=== PATIENT | male | born 1960 | race Hispanic/Latino ===

== ENCOUNTER 2022-03-14 14:24 | Inpatient (IN) | payer BC, OTHER ==
[~2022-03-14] VITALS: Ht 175.3 cm; Wt 79.4 kg
[2022-03-14 15:08] LABS: BASOPHILS % 0.1 % (0.0-1.0); EOSINOPHILS % 0.2 % (0.0-6.0); LYMPHOCYTES # (AUTO) 1.7 (1.0-3.2); LYMPHOCYTES % 14.6 % (18.0-39.1); MEAN CORPUSCULAR HEMOGLOBIN 24.4 pg (28-32); MEAN CORPUSCULAR HGB CONC 31.5 g/dL (31-35); MEAN CORPUSCULAR VOLUME 77.3 fL (81-99); MONOCYTES # (AUTO) 1.2 (0.2-0.8); NEUTROPHILS # (AUTO) 8.3 (2.1-6.9); NEUTROPHILS % 73.4 % (38.7-80.0); PLATELET COUNT 335 x10e3/uL (140-360); RED BLOOD COUNT 2.38 x10e6/uL (4.3-5.7); RED CELL DISTRIBUTION WIDTH 18.8 % (11.7-14.4)
[2022-03-14 15:14] LABS: HEMOGLOBIN 5.8 g/dL (14.0-18.0)
[2022-03-14 15:15] LABS: HEMATOCRIT 18.4 % (38.2-49.6)
[2022-03-14 15:26] LABS: ALBUMIN 1.9 g/dL (3.5-5.0); ALBUMIN/GLOBULIN RATIO 0.5 (0.8-2.0); ANION GAP 12.8 mmol/L (8-16); CALCIUM 8.5 mg/dL (8.4-10.2); CREATININE, SERUM 1.15 mg/dL (0.72-1.25)
[2022-03-14] MEDS ORDERED: SODIUM CHLORIDE 0.9% 250ML 250 ML IV ONE (15:30)
[2022-03-14 15:32] LABS: POTASSIUM 2.8 mmol/L (3.5-5.1)
[2022-03-14] MEDS ORDERED: POTASSIUM CHLORIDE 20 MEQ TAB CR PO ONE ×2 (15:32→20:20)
[2022-03-14] MEDS: POTASSIUM CHLORIDE 20MEQ/100ML 100 ML IV SCH ×2 (16:00→17:30)
[2022-03-14] MEDS ORDERED: OCTREOTIDE ACETATE 500 MCG in SODIUM CHLORIDE 0.9% 250ML 250 ML IV SCH (16:15)
[2022-03-14] MEDS ORDERED: ONDANSETRON HCL INJ 2MG/ML 2ML 2 MG/ML VIAL IV PRN (16:15)
[2022-03-14] MEDS ORDERED: SODIUM CHLORIDE 0.9% 1000ML 1,000 ML ONE (16:17)
[2022-03-14] MEDS: SODIUM CHLORIDE 0.9% 1000ML 1,000 ML IV SCH (16:38)
[2022-03-14] MEDS ORDERED: FUROSEMIDE40 MG PO (18:14)
[2022-03-14] MEDS ORDERED: AMLODIPINE BESYL5 MG PO (18:14)
[2022-03-14] MEDS ORDERED: ASPIRIN325 MG PO (18:14)
[2022-03-14] MEDS ORDERED: CLOPIDOGREL75 MG PO (18:14)
[2022-03-14] MEDS ORDERED: PREDNISONE20 MG PO (18:14)
[2022-03-14] MEDS ORDERED: ATORVASTATIN CA40 MG PO (18:14)
[2022-03-14 20:00] VITALS: BP 131/72
[2022-03-14] MEDS ORDERED: POTASSIUM CHLORIDE 20MEQ/100ML 100 ML IV ONE (20:25)
[2022-03-14 20:54] LABS: % IRON SATURATION 4 % (15-50); IRON 15 ug/dL (65-175); TOTAL IRON BINDING CAPACITY 420 ug/dL (261-478); TRANSFERRIN 300 mg/dL (174-364)
[2022-03-14 21:00] VITALS: BP 131/72
[2022-03-14] MEDS ORDERED: FUROSEMIDE INJ 10 MG/ML 4 ML VIAL IV ONE (22:45)
[2022-03-14] MEDS: OCTREOTIDE ACETATE 500 MCG in SODIUM CHLORIDE 0.9% 250ML 250 ML IV SCH (23:59)
[2022-03-15] VITALS (8 sets, daily range): BP systolic 106–146; BP diastolic 69–76
[2022-03-15] MEDS: SODIUM CHLORIDE 0.9% 1000ML 1,000 ML IV SCH ×2 (00:09→05:35)
[2022-03-15 04:59] LABS: BASOPHILS % 0.1 % (0.0-1.0); EOSINOPHILS % 0.4 % (0.0-6.0); HEMATOCRIT 23.8 % (38.2-49.6); HEMOGLOBIN 7.4 g/dL (14.0-18.0); LYMPHOCYTES % 13.3 % (18.0-39.1); MEAN CORPUSCULAR HEMOGLOBIN 24.3 pg (28-32); MEAN CORPUSCULAR HGB CONC 31.1 g/dL (31-35); MONOCYTES # (AUTO) 0.7 (0.2-0.8); MONOCYTES % 9.6 % (4.4-11.3); NEUTROPHILS # (AUTO) 5.9 (2.1-6.9); NEUTROPHILS % 76.1 % (38.7-80.0); PLATELET COUNT 224 x10e3/uL (140-360); RED BLOOD COUNT 3.05 x10e6/uL (4.3-5.7); RED CELL DISTRIBUTION WIDTH 19.5 % (11.7-14.4)
[2022-03-15 05:07] LABS: INR 1.22; PROTHROMBIN TIME 15.6 seconds (11.9-14.5)
[2022-03-15 05:08] LABS: PARTIAL THROMBOPLASTIN TIME 35.6 seconds (23.8-35.5)
[2022-03-15 05:14] LABS: ALBUMIN 1.8 g/dL (3.5-5.0); ALBUMIN/GLOBULIN RATIO 0.5 (0.8-2.0); ANION GAP 12.4 mmol/L (8-16); CALCIUM 8.1 mg/dL (8.4-10.2); CREATININE, SERUM 1.12 mg/dL (0.72-1.25); POTASSIUM 3.4 mmol/L (3.5-5.1)
[2022-03-15] MEDS: IRON SUCROSE 100 MG in SODIUM CHLORIDE 0.9% 100 ML IV SCH (09:20)
[2022-03-15] MEDS: OCTREOTIDE ACETATE 500 MCG in SODIUM CHLORIDE 0.9% 250ML 250 ML IV SCH ×2 (09:20→16:49)
[2022-03-15] MEDS: FUROSEMIDE INJ 10 MG/ML 4 ML VIAL IV SCH ×2 (09:23→16:49)
[2022-03-15] MEDS ORDERED: IOPAMIDOL 370 MG/ML 100 ML INFUS..BTL INJ ONE (12:02)
[2022-03-15] MEDS ORDERED: POVIDONE IODINE 0.05% 0.05 % ML PO ONE (12:12)
[2022-03-15] MEDS ORDERED: PROPOFOL IV EMULSION 10 MG/ML 20 ML VIAL ONE (12:12)
[2022-03-15] MEDS ORDERED: LIDOCAINE HCL 2% LOCAL INJ 5 ML SDV VIAL INJ ONE (12:12)
[2022-03-15] MEDS: TRAMADOL HCL 50 MG TAB PO PRN ×2 (18:17→18:48)
[2022-03-16] VITALS (9 sets, daily range): BP systolic 105–138; BP diastolic 70–81
[2022-03-16] MEDS: TRAMADOL HCL 50 MG TAB PO PRN (01:23)
[2022-03-16 04:59] LABS: BASOPHILS % 0.4 % (0.0-1.0); EOSINOPHILS # (AUTO) 0.1 (0.0-0.4); EOSINOPHILS % 1.6 % (0.0-6.0); HEMATOCRIT 22.9 % (38.2-49.6); HEMOGLOBIN 7.2 g/dL (14.0-18.0); LYMPHOCYTES # (AUTO) 1.1 (1.0-3.2); LYMPHOCYTES % 12.3 % (18.0-39.1); MEAN CORPUSCULAR HEMOGLOBIN 24.5 pg (28-32); MEAN CORPUSCULAR HGB CONC 31.4 g/dL (31-35); MEAN CORPUSCULAR VOLUME 77.9 fL (81-99); MONOCYTES # (AUTO) 0.9 (0.2-0.8); MONOCYTES % 10.1 % (4.4-11.3); NEUTROPHILS # (AUTO) 6.8 (2.1-6.9); NEUTROPHILS % 74.9 % (38.7-80.0); PLATELET COUNT 271 x10e3/uL (140-360); RED BLOOD COUNT 2.94 x10e6/uL (4.3-5.7); RED CELL DISTRIBUTION WIDTH 19.3 % (11.7-14.4)
[2022-03-16] MEDS: OCTREOTIDE ACETATE 500 MCG in SODIUM CHLORIDE 0.9% 250ML 250 ML IV SCH ×4 (05:15→23:09)
[2022-03-16 05:19] LABS: ALBUMIN 1.8 g/dL (3.5-5.0); ALBUMIN/GLOBULIN RATIO 0.5 (0.8-2.0); ANION GAP 12.4 mmol/L (8-16); CALCIUM 8.3 mg/dL (8.4-10.2); CREATININE, SERUM 1.39 mg/dL (0.72-1.25); MAGNESIUM 1.8 MG/DL (1.3-2.1); PHOSPHORUS 3.3 MG/DL (2.3-4.7); POTASSIUM 3.4 mmol/L (3.5-5.1)
[2022-03-16 05:46] LABS: THYROID STIMULATING HORMONE 1.039 uIU/mL (0.350-4.940)
[2022-03-16] MEDS: FUROSEMIDE INJ 10 MG/ML 4 ML VIAL IV SCH (09:14)
[2022-03-16] MEDS ORDERED: POTASSIUM CHLORIDE 10MEQ EA PO ONE (09:30)
[2022-03-16] MEDS: IRON SUCROSE 100 MG in SODIUM CHLORIDE 0.9% 100 ML IV SCH (10:00)
[2022-03-17 05:24] LABS: BASOPHILS % 0.2 % (0.0-1.0); EOSINOPHILS # (AUTO) 0.2 (0.0-0.4); EOSINOPHILS % 1.8 % (0.0-6.0); HEMATOCRIT 23.2 % (38.2-49.6); HEMOGLOBIN 7.2 g/dL (14.0-18.0); LYMPHOCYTES # (AUTO) 1.3 (1.0-3.2); LYMPHOCYTES % 15.4 % (18.0-39.1); MEAN CORPUSCULAR HEMOGLOBIN 24.2 pg (28-32); MEAN CORPUSCULAR VOLUME 78.1 fL (81-99); MONOCYTES # (AUTO) 0.8 (0.2-0.8); MONOCYTES % 9.5 % (4.4-11.3); NEUTROPHILS % 72.1 % (38.7-80.0); RED BLOOD COUNT 2.97 x10e6/uL (4.3-5.7); RED CELL DISTRIBUTION WIDTH 19.9 % (11.7-14.4)
[2022-03-17 05:36] VITALS: BP 148/82
[2022-03-17 05:37] LABS: PLATELET COUNT 226 x10e3/uL (140-360)
[2022-03-17 05:45] LABS: ALBUMIN 1.7 g/dL (3.5-5.0); ALBUMIN/GLOBULIN RATIO 0.5 (0.8-2.0); ANION GAP 12.5 mmol/L (8-16); CALCIUM 7.8 mg/dL (8.4-10.2); CREATININE, SERUM 1.76 mg/dL (0.72-1.25); POTASSIUM 3.5 mmol/L (3.5-5.1)
[2022-03-17] MEDS: OCTREOTIDE ACETATE 500 MCG in SODIUM CHLORIDE 0.9% 250ML 250 ML IV SCH (08:00)
[2022-03-17 08:07] VITALS: BP 129/76
[2022-03-17] MEDS: FUROSEMIDE INJ 10 MG/ML 4 ML VIAL IV SCH (08:36)
[2022-03-17] MEDS: IRON SUCROSE 100 MG in SODIUM CHLORIDE 0.9% 100 ML IV SCH (08:37)
[2022-03-17] MEDS ORDERED: FUROSEMIDE INJ 10 MG/ML 2 ML VIAL IV PRN (09:45)
[2022-03-17] MEDS ORDERED: SODIUM CHLORIDE 0.9% 250ML 250 ML IV ONE (10:30)
[2022-03-17 10:32] VITALS: BP 129/76
[2022-03-17] MEDS: SUCRALFATE 1 GM/10 ML SUSP NG SCH ×3 (11:56→20:37)
[2022-03-17 12:00] VITALS: BP 132/86
[2022-03-17] MEDS ORDERED: SODIUM CHLORIDE 0.9% 250ML 250 ML ONE (16:13)
[2022-03-17 16:30] VITALS: BP 128/75
[2022-03-17 20:00] VITALS: BP 145/79
[2022-03-17] MEDS ORDERED: FUROSEMIDE INJ 10 MG/ML 4 ML VIAL IV ONE (23:45)
[2022-03-18] VITALS: BP 143/78
[2022-03-18 04:00] VITALS: BP 129/75
[2022-03-18 05:08] LABS: BASOPHILS % 0.5 % (0.0-1.0); EOSINOPHILS # (AUTO) 0.1 (0.0-0.4); EOSINOPHILS % 1.7 % (0.0-6.0); HEMATOCRIT 30.3 % (38.2-49.6); HEMOGLOBIN 9.5 g/dL (14.0-18.0); LYMPHOCYTES # (AUTO) 0.9 (1.0-3.2); LYMPHOCYTES % 13.3 % (18.0-39.1); MEAN CORPUSCULAR HEMOGLOBIN 25.3 pg (28-32); MEAN CORPUSCULAR HGB CONC 31.4 g/dL (31-35); MEAN CORPUSCULAR VOLUME 80.6 fL (81-99); MONOCYTES # (AUTO) 0.6 (0.2-0.8); MONOCYTES % 9.1 % (4.4-11.3); NEUTROPHILS # (AUTO) 4.8 (2.1-6.9); NEUTROPHILS % 74.5 % (38.7-80.0); PLATELET COUNT 184 x10e3/uL (140-360); RED BLOOD COUNT 3.76 x10e6/uL (4.3-5.7); RED CELL DISTRIBUTION WIDTH 19.9 % (11.7-14.4)
[2022-03-18 05:25] LABS: ALBUMIN 1.7 g/dL (3.5-5.0); ALBUMIN/GLOBULIN RATIO 0.5 (0.8-2.0); ANION GAP 10.2 mmol/L (8-16); CALCIUM 7.9 mg/dL (8.4-10.2); CREATININE, SERUM 1.47 mg/dL (0.72-1.25); POTASSIUM 3.2 mmol/L (3.5-5.1)
[2022-03-18] MEDS ORDERED: FUROSEMIDE INJ 10 MG/ML 4 ML VIAL IV SCH (06:00)
[2022-03-18 08:00] VITALS: BP 129/75
[2022-03-18] MEDS ORDERED: IRON-VITAMIN-MINERAL CAPSULE PO SCH (09:00)
[2022-03-18] MEDS ORDERED: SPIRONOLACTONE 25 MG TAB PO SCH (09:00)
[2022-03-18] MEDS ORDERED: FUROSEMIDE 40 MG TAB PO SCH (09:00)
[2022-03-18] MEDS: SUCRALFATE 1 GM/10 ML SUSP NG SCH ×2 (09:33→12:00)
[2022-03-18] MEDS ORDERED: POTASSIUM CHLORIDE 10MEQ EA PO ONE (10:30)
[2022-03-18 10:57] VITALS: BP 129/75
[2022-03-18] MEDS ORDERED: FUROSEMIDE40 MG PO (11:34)
[2022-03-18] MEDS ORDERED: ALDACTONE25 MG PO (11:34)
[2022-03-18] MEDS ORDERED: PANTOPRAZOLE SO40 MG PO (11:34)
[2022-03-18] MEDS ORDERED: CARAFATE1 GM PO (11:35)
[2022-03-18] MEDS ORDERED: ONDANSETRON ODT4 MG PO (11:35)
[2022-03-18] MEDS ORDERED: PROPRANOLOL HCL10 MG PO (11:36)
== END 2022-03-18 13:16 | disposition home or self-care (01) | DRG 432 ==
LOC: ER 14:29 → ERHOLD 16:19 → MED/SURG2 18:02
PROVIDERS: ADMIT Internal Medicine; ATTEND Internal Medicine
PROC: 0DB78ZX Excision of Stomach, Pylorus, Via Natural or Artificial Opening Endoscopic, Diagnostic (ICD-10-PCS; 2022-03-15)
PROC: 0DB68ZX Excision of Stomach, Via Natural or Artificial Opening Endoscopic, Diagnostic (ICD-10-PCS; 2022-03-15)
PROC: 30233N1 Transfusion of Nonautologous Red Blood Cells into Peripheral Vein, Percutaneous Approach (ICD-10-PCS; 2022-03-15)
PROC: 0DB98ZX Excision of Duodenum, Via Natural or Artificial Opening Endoscopic, Diagnostic (ICD-10-PCS; principal; 2022-03-15 14:54)
DX: K70.31 Alcoholic cirrhosis of liver with ascites (principal); K22.11 Ulcer of esophagus with bleeding; K25.4 Chronic or unspecified gastric ulcer with hemorrhage; K76.6 Portal hypertension; D68.4 Acquired coagulation factor deficiency; F10.20 Alcohol dependence, uncomplicated; K31.89 Other diseases of stomach and duodenum; I10 Essential (primary) hypertension; B18.2 Chronic viral hepatitis C; R63.4 Abnormal weight loss; Z68.25 Body mass index [BMI] 25.0-25.9, adult; E87.8 Other disorders of electrolyte and fluid balance, not elsewhere classified; Z20.822 Contact with and (suspected) exposure to COVID-19
CPT/HCPCS: 0223U; 36415; 43239; 71045; 74178; 76700; 80053; 82270; 82607; 82746; 83540; 83735; 83880; 84100; 84443; 84466; 84484; 85025; 85045; 85610; 85730; 86850; 86900; 86920; 88304; 88305; 88312; 88342; 93005; 99284; J0694; J1756; J1940; J2001; J2353; J3480; J7030; J7050; P9016; Q9967

== ENCOUNTER → 2022-04-04 | Day surgery (SDC) | payer OTHER ==
[~2022-04-04] MED LIST: ALDACTONE25 MG PO; AMLODIPINE BESYL5 MG PO; ASPIRIN325 MG PO; ATORVASTATIN CA40 MG PO; CARAFATE1 GM PO; CLOPIDOGREL75 MG PO; FENTANYL CITRATE/PF 100MCG/2 ML INJ ONE; FUROSEMIDE INJ 10 MG/ML 4 ML VIAL ONE; FUROSEMIDE40 MG PO; HYOSCYAMINE SULFATE 0.5 MG/ML INJ ONE; MIDAZOLAM HCL 2 MG/2 ML VIAL ONE; ONDANSETRON ODT4 MG PO; PANTOPRAZOLE SO40 MG PO; POVIDONE IODINE 0.05% 0.05 % ML PO ONE; PREDNISONE20 MG PO; PROPOFOL IV EMULSION 10 MG/ML 20 ML VIAL ONE; PROPRANOLOL HCL10 MG PO
[2022-04-04 15:40] VITALS: BP 138/89
[2022-04-04 15:56] LABS: ANION GAP 15.9 mmol/L (8-16); CALCIUM 8.8 mg/dL (8.4-10.2); CREATININE, SERUM 1.61 mg/dL (0.72-1.25); POTASSIUM 3.9 mmol/L (3.5-5.1)
== END | disposition home or self-care (01) ==
LOC: OR 08:41
PROVIDERS: ATTEND Internal Medicine Gastroenterology
DX: D64.9 Anemia, unspecified (principal); D12.5 Benign neoplasm of sigmoid colon; K57.30 Diverticulosis of large intestine without perforation or abscess without bleeding; K64.8 Other hemorrhoids; K70.31 Alcoholic cirrhosis of liver with ascites; K22.10 Ulcer of esophagus without bleeding; B96.81 Helicobacter pylori [H. pylori] as the cause of diseases classified elsewhere; Z71.3 Dietary counseling and surveillance; I10 Essential (primary) hypertension; Z79.899 Other long term (current) drug therapy; Z68.26 Body mass index [BMI] 26.0-26.9, adult; Z86.19 Personal history of other infectious and parasitic diseases; Z86.73 Personal history of transient ischemic attack (TIA), and cerebral infarction without residual deficits
CPT/HCPCS: 36415; 45385; 80048; J1940; J1980; J2250; J2704; J3010

== ENCOUNTER → 2022-04-06 | Outpatient (CLI) | payer OTHER ==
[~2022-04-06] MED LIST changes: +ALBUMIN 25% 12.5GM 50ML 150 ML IV ONE; -FENTANYL CITRATE/PF 100MCG/2 ML INJ ONE; -FUROSEMIDE INJ 10 MG/ML 4 ML VIAL ONE; -HYOSCYAMINE SULFATE 0.5 MG/ML INJ ONE; -MIDAZOLAM HCL 2 MG/2 ML VIAL ONE; -POVIDONE IODINE 0.05% 0.05 % ML PO ONE; -PROPOFOL IV EMULSION 10 MG/ML 20 ML VIAL ONE
[2022-04-06 14:52] LABS: BODY FLUID APPEARANCE SL.CLOUDY; BODY FLUID COLOR YELLOW; BODY FLUID TYPE PERITONEAL
[2022-04-06 15:21] LABS: RBC,BODY FLUID < 2000 cells/uL; WBC,BODY FLUID 92 cells/uL
[2022-04-06 17:32] LABS: LYMPHOCYTES,BODY FLUID 7 %; MONO/MACROPHG,BODY FLUID 47 %; NEUTROPHILS,BODY FLUID 5 %; OTHER CELLS,BODY FLUID 41 %
== END ==
LOC: US 10:05
PROVIDERS: ATTEND Nurse Practitioner
DX: Z12.11 Encounter for screening for malignant neoplasm of colon (principal); K70.31 Alcoholic cirrhosis of liver with ascites; D64.9 Anemia, unspecified; K22.10 Ulcer of esophagus without bleeding
CPT/HCPCS: 36415; 49083; 82040; 84157; 87070; 87205; 88300; 89051; C1729; 88112; 88305; 88342

== ENCOUNTER 2022-04-22 10:39 | Inpatient (IN) | payer OTHER ==
[~2022-04-22] VITALS: Ht 177.8 cm; Wt 77.1 kg
[~2022-04-22 10:39] MED LIST changes: -ALBUMIN 25% 12.5GM 50ML 150 ML IV ONE
[2022-04-22 11:07] LABS: BASOPHILS % 0.3 % (0.0-1.0); EOSINOPHILS # (AUTO) 0.2 (0.0-0.4); EOSINOPHILS % 1.8 % (0.0-6.0); HEMATOCRIT 24.9 % (38.2-49.6); HEMOGLOBIN 8.4 g/dL (14.0-18.0); LYMPHOCYTES # (AUTO) 1.6 (1.0-3.2); LYMPHOCYTES % 18.2 % (18.0-39.1); MEAN CORPUSCULAR HEMOGLOBIN 26.5 pg (28-32); MEAN CORPUSCULAR HGB CONC 33.7 g/dL (31-35); MEAN CORPUSCULAR VOLUME 78.5 fL (81-99); MONOCYTES % 11.7 % (4.4-11.3); NEUTROPHILS # (AUTO) 5.9 (2.1-6.9); NEUTROPHILS % 66.3 % (38.7-80.0); PLATELET COUNT 372 x10e3/uL (140-360); RED BLOOD COUNT 3.17 x10e6/uL (4.3-5.7)
[2022-04-22 11:18] LABS: INR 1.12; PROTHROMBIN TIME 14.6 seconds (11.9-14.5)
[2022-04-22 11:19] LABS: PARTIAL THROMBOPLASTIN TIME 44.8 seconds (23.8-35.5)
[2022-04-22 11:26] LABS: ALBUMIN 1.8 g/dL (3.5-5.0); ALBUMIN/GLOBULIN RATIO 0.5 (0.8-2.0); ANION GAP 12.8 mmol/L (8-16); CALCIUM 8.5 mg/dL (8.4-10.2); CREATININE, SERUM 1.78 mg/dL (0.72-1.25); POTASSIUM 4.8 mmol/L (3.5-5.1)
[2022-04-22] MEDS ORDERED: OCTREOTIDE ACETATE 0.05 MG/ML AMP IV STA (11:40)
[2022-04-22 11:46] LABS: CREATINE KINASE MB 2.8 ng/mL (0-5.0)
[2022-04-22] MEDS: OCTREOTIDE ACETATE 500 MCG in SODIUM CHLORIDE 0.9% 250ML 249 ML IV SCH ×2 (12:18→21:30)
[2022-04-22] MEDS ORDERED: HEPARIN SOD (PORCINE) 5,000 UNIT/ML VIAL IV ONE (12:45)
[2022-04-22] MEDS ORDERED: HEPARIN 25,000 UNIT/D5W 250ML 900 UNIT in DEXTROSE 5% 250ML 250 ML IV SCH (12:45)
[2022-04-22] MEDS: ONDANSETRON HCL INJ 2MG/ML 2ML 2 MG/ML VIAL IV PRN (13:52)
[2022-04-22] MEDS ORDERED: ALBUMIN 25% 25GM 100ML 0.25 GM/ML BTL IV SCH (14:00)
[2022-04-22 14:08] VITALS: BP 108/67
[2022-04-22 14:09] VITALS: BP 108/67
[2022-04-22] MEDS ORDERED: MULTIVITAMIN PO (14:36)
[2022-04-22 14:37] VITALS: BP 108/67
[2022-04-22] MEDS: ALBUMIN 25% 25GM 100ML 0.25 GM/ML BTL IV SCH ×2 (16:12→21:19)
[2022-04-22 16:38] VITALS: BP 108/67
[2022-04-22 17:07] LABS: BASOPHILS % 0.5 % (0.0-1.0); EOSINOPHILS # (AUTO) 0.1 (0.0-0.4); EOSINOPHILS % 0.7 % (0.0-6.0); HEMATOCRIT 24.7 % (38.2-49.6); HEMOGLOBIN 8.1 g/dL (14.0-18.0); LYMPHOCYTES # (AUTO) 1.4 (1.0-3.2); LYMPHOCYTES % 16.9 % (18.0-39.1); MEAN CORPUSCULAR HEMOGLOBIN 26.9 pg (28-32); MEAN CORPUSCULAR HGB CONC 32.8 g/dL (31-35); MEAN CORPUSCULAR VOLUME 82.1 fL (81-99); MONOCYTES # (AUTO) 0.9 (0.2-0.8); MONOCYTES % 10.6 % (4.4-11.3); NEUTROPHILS # (AUTO) 5.7 (2.1-6.9); NEUTROPHILS % 69.6 % (38.7-80.0); PLATELET COUNT 271 x10e3/uL (140-360); RED BLOOD COUNT 3.01 x10e6/uL (4.3-5.7); RED CELL DISTRIBUTION WIDTH 28.3 % (11.7-14.4)
[2022-04-22 17:30] LABS: CREATINE KINASE MB 2.5 ng/mL (0-5.0)
[2022-04-22 20:00] VITALS: BP 103/50
[2022-04-22 21:00] VITALS: BP 103/50
[2022-04-22] MEDS ORDERED: ZOLPIDEM TARTRATE 5 MG TAB PO PRN (21:00)
[2022-04-22] MEDS ORDERED: MULTIVITAMINS- 12 INJECTION 10 ML, FOLIC ACID MDV 1 MG, THIAMINE HCL INJ 100 MG in SODI... IV SCH (21:45)
[2022-04-22] MEDS ORDERED: DESMOPRESSIN ACETATE 4 MCG/ML VIAL IV ONE (21:45)
[2022-04-22] MEDS ORDERED: CYANOCOBALAMIN 1,000 MCG TAB PO ONE (22:45)
[2022-04-22 23:39] LABS: % IRON SATURATION 15 % (15-50); IRON 52 ug/dL (65-175); TOTAL IRON BINDING CAPACITY 337 ug/dL (261-478); TRANSFERRIN 241 mg/dL (174-364)
[2022-04-23] VITALS (9 sets, daily range): BP systolic 94–118; BP diastolic 55–68
[2022-04-23] MEDS ORDERED: FUROSEMIDE INJ 10 MG/ML 4 ML VIAL IV STA (00:32)
[2022-04-23 02:59] LABS: BASOPHILS % 0.4 % (0.0-1.0); EOSINOPHILS # (AUTO) 0.1 (0.0-0.4); EOSINOPHILS % 1.8 % (0.0-6.0); LYMPHOCYTES # (AUTO) 1.3 (1.0-3.2); LYMPHOCYTES % 19.2 % (18.0-39.1); MEAN CORPUSCULAR HEMOGLOBIN 26.1 pg (28-32); MEAN CORPUSCULAR HGB CONC 33.5 g/dL (31-35); MONOCYTES # (AUTO) 0.7 (0.2-0.8); MONOCYTES % 9.6 % (4.4-11.3); NEUTROPHILS # (AUTO) 4.6 (2.1-6.9); NEUTROPHILS % 67.8 % (38.7-80.0); PLATELET COUNT 291 x10e3/uL (140-360); RED BLOOD COUNT 2.68 x10e6/uL (4.3-5.7); RED CELL DISTRIBUTION WIDTH 27.6 % (11.7-14.4)
[2022-04-23 03:02] LABS: HEMATOCRIT 20.9 % (38.2-49.6)
[2022-04-23 03:23] LABS: CREATINE KINASE MB 2.2 ng/mL (0-5.0)
[2022-04-23] MEDS: PROPRANOLOL HCL 10 MG TAB PO SCH ×4 (05:25→22:00)
[2022-04-23 06:34] LABS: CLARITY,URINE CLEAR (CLEAR); COLOR,URINE YELLOW (YELLOW); KETONES,URINE NEGATIVE (NEGATIVE); LEUKOCYTE ESTERASE ,URINE NEGATIVE (NEGATIVE); NITRITE,URINE NEGATIVE (NEGATIVE); PROTEIN,URINE DIPSTICK NEGATIVE (NEGATIVE); URINE UROBILINOGEN 0.2 mg/dL (0.2 - 1)
[2022-04-23 06:54] LABS: BACTERIA,URINE RARE /HPF; EPITHELIAL CELLS,URINE RARE /LPF; WBC,URINE (MAN) 0-5 /HPF (0-5)
[2022-04-23 07:11] LABS: ALBUMIN 2.5 g/dL (3.5-5.0); ALBUMIN/GLOBULIN RATIO 0.8 (0.8-2.0); ANION GAP 14.8 mmol/L (8-16); CALCIUM 8.7 mg/dL (8.4-10.2); CREATININE, SERUM 1.84 mg/dL (0.72-1.25); POTASSIUM 4.8 mmol/L (3.5-5.1)
[2022-04-23 08:00] LABS: BILIRUBIN,DIRECT 9.2 mg/dL (0.0-0.5)
[2022-04-23] MEDS ORDERED: FUROSEMIDE INJ 10 MG/ML 4 ML VIAL IV SCH (09:00)
[2022-04-23] MEDS: MULTIVITAMINS/MINERALS TAB PO SCH (09:22)
[2022-04-23] MEDS: IRON SUCROSE 100 MG in SODIUM CHLORIDE 0.9% 100 ML IV SCH (09:22)
[2022-04-23] MEDS: SODIUM CHLORIDE 1 GM TAB PO SCH ×3 (10:48→21:15)
[2022-04-23] MEDS: OCTREOTIDE ACETATE 500 MCG in SODIUM CHLORIDE 0.9% 250ML 249 ML IV SCH (10:49)
[2022-04-23] MEDS ORDERED: SODIUM CHLORIDE 0.9% 250ML 250 ML IV ONE ×2 (11:00→16:00)
[2022-04-23] MEDS ORDERED: ALBUMIN 25% 12.5GM 50ML 0 ML IV ONE (12:05)
[2022-04-23 12:10] LABS: CREATININE,URINE RANDOM 18.07 mg/dL (63-166)
[2022-04-23] MEDS: SODIUM BICARBONATE 8.4% 150 ML in STERILE WATER IV SOLN 1,000 ML IV SCH (13:43)
[2022-04-23 14:35] LABS: BASOPHILS % 0.5 % (0.0-1.0); EOSINOPHILS # (AUTO) 0.1 (0.0-0.4); EOSINOPHILS % 1.4 % (0.0-6.0); LYMPHOCYTES # (AUTO) 0.9 (1.0-3.2); LYMPHOCYTES % 15.7 % (18.0-39.1); MEAN CORPUSCULAR HEMOGLOBIN 26.5 pg (28-32); MEAN CORPUSCULAR VOLUME 80.2 fL (81-99); MONOCYTES # (AUTO) 0.8 (0.2-0.8); MONOCYTES % 13.1 % (4.4-11.3); NEUTROPHILS # (AUTO) 3.9 (2.1-6.9); NEUTROPHILS % 68.1 % (38.7-80.0); RED BLOOD COUNT 2.57 x10e6/uL (4.3-5.7); RED CELL DISTRIBUTION WIDTH 27.9 % (11.7-14.4)
[2022-04-23 14:58] LABS: HEMATOCRIT 20.6 % (38.2-49.6); HEMOGLOBIN 6.8 g/dL (14.0-18.0)
[2022-04-23 14:59] LABS: PLATELET COUNT 249 x10e3/uL (140-360)
[2022-04-23 15:15] LABS: BODY FLUID APPEARANCE CLOUDY; BODY FLUID COLOR YELLOW; BODY FLUID TYPE PERITONEAL; RBC,BODY FLUID 0 cells/uL; WBC,BODY FLUID 53 cells/uL
[2022-04-23 15:37] LABS: LYMPHOCYTES,BODY FLUID 36 %; MONO/MACROPHG,BODY FLUID 41 %; NEUTROPHILS,BODY FLUID 8 %; OTHER CELLS,BODY FLUID 15 %
[2022-04-23] MEDS ORDERED: SODIUM CHLORIDE 0.9% 500ML 500 ML ONE (15:55)
[2022-04-23 19:07] LABS: CLARITY,URINE CLEAR (CLEAR); COLOR,URINE YELLOW (YELLOW); LEUKOCYTE ESTERASE ,URINE NEGATIVE (NEGATIVE); NITRITE,URINE NEGATIVE (NEGATIVE)
[2022-04-23 19:08] LABS: KETONES,URINE NEGATIVE (NEGATIVE); PROTEIN,URINE DIPSTICK NEGATIVE (NEGATIVE); URINE UROBILINOGEN 1 mg/dL (0.2 - 1)
[2022-04-23 19:20] LABS: RBC,URINE 0-5 /HPF (0-5)
[2022-04-23 19:21] LABS: EPITHELIAL CELLS,URINE FEW /LPF; HYALINE CASTS >15 (0-1)
[2022-04-23 19:22] LABS: BACTERIA,URINE MANY /HPF; MUCUS,URINE FEW (RARE)
[2022-04-24] VITALS (9 sets, daily range): BP systolic 102–130; BP diastolic 58–76
[2022-04-24] MEDS: SODIUM BICARBONATE 8.4% 150 ML in STERILE WATER IV SOLN 1,000 ML IV SCH (05:39)
[2022-04-24] MEDS: PROPRANOLOL HCL 10 MG TAB PO SCH ×3 (06:00→22:00)
[2022-04-24] MEDS: OCTREOTIDE ACETATE 500 MCG in SODIUM CHLORIDE 0.9% 250ML 249 ML IV SCH ×3 (06:08→13:19)
[2022-04-24] MEDS: SODIUM CHLORIDE 1 GM TAB PO SCH ×3 (08:34→20:50)
[2022-04-24] MEDS: MULTIVITAMINS/MINERALS TAB PO SCH (08:34)
[2022-04-24 09:43] LABS: BASOPHILS % 0.5 % (0.0-1.0); EOSINOPHILS # (AUTO) 0.1 (0.0-0.4); EOSINOPHILS % 1.8 % (0.0-6.0); HEMATOCRIT 28.7 % (38.2-49.6); HEMOGLOBIN 9.9 g/dL (14.0-18.0); LYMPHOCYTES # (AUTO) 0.7 (1.0-3.2); LYMPHOCYTES % 11.4 % (18.0-39.1); MEAN CORPUSCULAR HEMOGLOBIN 27.7 pg (28-32); MEAN CORPUSCULAR HGB CONC 34.5 g/dL (31-35); MEAN CORPUSCULAR VOLUME 80.2 fL (81-99); MONOCYTES # (AUTO) 0.6 (0.2-0.8); MONOCYTES % 9.5 % (4.4-11.3); NEUTROPHILS # (AUTO) 4.7 (2.1-6.9); NEUTROPHILS % 75.8 % (38.7-80.0); PLATELET COUNT 233 x10e3/uL (140-360); RED BLOOD COUNT 3.58 x10e6/uL (4.3-5.7); RED CELL DISTRIBUTION WIDTH 24.2 % (11.7-14.4)
[2022-04-24 10:02] LABS: ALBUMIN 2.3 g/dL (3.5-5.0); ALBUMIN/GLOBULIN RATIO 0.8 (0.8-2.0); ANION GAP 15.5 mmol/L (8-16); CALCIUM 8.4 mg/dL (8.4-10.2); CREATININE, SERUM 1.69 mg/dL (0.72-1.25); POTASSIUM 4.5 mmol/L (3.5-5.1)
[2022-04-24] MEDS: IRON SUCROSE 100 MG in SODIUM CHLORIDE 0.9% 100 ML IV SCH (10:07)
[2022-04-24] MEDS ORDERED: SODIUM CHLORIDE 0.9% 1000ML 1,000 ML ONE (13:12)
[2022-04-24 15:14] LABS: BASOPHILS % 0.3 % (0.0-1.0); EOSINOPHILS # (AUTO) 0.1 (0.0-0.4); HEMATOCRIT 27.4 % (38.2-49.6); HEMOGLOBIN 9.6 g/dL (14.0-18.0); LYMPHOCYTES # (AUTO) 0.9 (1.0-3.2); LYMPHOCYTES % 15.3 % (18.0-39.1); MEAN CORPUSCULAR HEMOGLOBIN 27.4 pg (28-32); MEAN CORPUSCULAR VOLUME 78.1 fL (81-99); MONOCYTES # (AUTO) 0.6 (0.2-0.8); MONOCYTES % 9.6 % (4.4-11.3); NEUTROPHILS # (AUTO) 4.3 (2.1-6.9); PLATELET COUNT 234 x10e3/uL (140-360); RED BLOOD COUNT 3.51 x10e6/uL (4.3-5.7); RED CELL DISTRIBUTION WIDTH 23.7 % (11.7-14.4)
[2022-04-24] MEDS: TRAMADOL HCL 50 MG TAB PO PRN (21:42)
[2022-04-25] VITALS (7 sets, daily range): BP systolic 96–124; BP diastolic 60–75
[2022-04-25] MEDS: SODIUM BICARBONATE 8.4% 150 ML in STERILE WATER IV SOLN 1,000 ML IV SCH (01:37)
[2022-04-25] MEDS: OCTREOTIDE ACETATE 500 MCG in SODIUM CHLORIDE 0.9% 250ML 249 ML IV SCH ×3 (01:37→21:09)
[2022-04-25 05:42] LABS: BASOPHILS % 0.5 % (0.0-1.0); EOSINOPHILS # (AUTO) 0.1 (0.0-0.4); EOSINOPHILS % 1.7 % (0.0-6.0); HEMATOCRIT 28.3 % (38.2-49.6); HEMOGLOBIN 9.6 g/dL (14.0-18.0); LYMPHOCYTES # (AUTO) 1.4 (1.0-3.2); LYMPHOCYTES % 17.5 % (18.0-39.1); MEAN CORPUSCULAR HEMOGLOBIN 27.4 pg (28-32); MEAN CORPUSCULAR HGB CONC 33.9 g/dL (31-35); MEAN CORPUSCULAR VOLUME 80.6 fL (81-99); MONOCYTES % 13.1 % (4.4-11.3); NEUTROPHILS # (AUTO) 5.1 (2.1-6.9); NEUTROPHILS % 65.8 % (38.7-80.0); PLATELET COUNT 231 x10e3/uL (140-360); RED BLOOD COUNT 3.51 x10e6/uL (4.3-5.7); RED CELL DISTRIBUTION WIDTH 24.6 % (11.7-14.4)
[2022-04-25] MEDS: PROPRANOLOL HCL 10 MG TAB PO SCH ×2 (06:00→14:00)
[2022-04-25 07:03] LABS: ALBUMIN 2.1 g/dL (3.5-5.0); ALBUMIN/GLOBULIN RATIO 0.8 (0.8-2.0); ANION GAP 14.7 mmol/L (8-16); CREATININE, SERUM 1.35 mg/dL (0.72-1.25); POTASSIUM 4.7 mmol/L (3.5-5.1)
[2022-04-25] MEDS: MULTIVITAMINS/MINERALS TAB PO SCH (08:46)
[2022-04-25] MEDS: IRON SUCROSE 100 MG in SODIUM CHLORIDE 0.9% 100 ML IV SCH (08:47)
[2022-04-25] MEDS: SODIUM CHLORIDE 1 GM TAB PO SCH ×2 (08:49→15:56)
[2022-04-25 12:23] LABS: BASOPHILS % 0.6 % (0.0-1.0); EOSINOPHILS # (AUTO) 0.1 (0.0-0.4); EOSINOPHILS % 2.2 % (0.0-6.0); HEMATOCRIT 27.6 % (38.2-49.6); HEMOGLOBIN 9.4 g/dL (14.0-18.0); LYMPHOCYTES # (AUTO) 1.1 (1.0-3.2); LYMPHOCYTES % 22.2 % (18.0-39.1); MEAN CORPUSCULAR HEMOGLOBIN 27.3 pg (28-32); MEAN CORPUSCULAR HGB CONC 34.1 g/dL (31-35); MEAN CORPUSCULAR VOLUME 80.2 fL (81-99); MONOCYTES # (AUTO) 0.5 (0.2-0.8); MONOCYTES % 10.7 % (4.4-11.3); NEUTROPHILS # (AUTO) 3.1 (2.1-6.9); NEUTROPHILS % 62.7 % (38.7-80.0); PLATELET COUNT 239 x10e3/uL (140-360); RED BLOOD COUNT 3.44 x10e6/uL (4.3-5.7); RED CELL DISTRIBUTION WIDTH 24.8 % (11.7-14.4)
[2022-04-25 19:41] LABS: BASOPHILS % 0.7 % (0.0-1.0); EOSINOPHILS # (AUTO) 0.1 (0.0-0.4); EOSINOPHILS % 2.3 % (0.0-6.0); HEMATOCRIT 28.8 % (38.2-49.6); LYMPHOCYTES # (AUTO) 1.2 (1.0-3.2); LYMPHOCYTES % 22.1 % (18.0-39.1); MEAN CORPUSCULAR HEMOGLOBIN 27.5 pg (28-32); MEAN CORPUSCULAR HGB CONC 34.7 g/dL (31-35); MEAN CORPUSCULAR VOLUME 79.3 fL (81-99); MONOCYTES # (AUTO) 0.8 (0.2-0.8); MONOCYTES % 13.3 % (4.4-11.3); NEUTROPHILS # (AUTO) 3.3 (2.1-6.9); NEUTROPHILS % 58.6 % (38.7-80.0); PLATELET COUNT 255 x10e3/uL (140-360); RED BLOOD COUNT 3.63 x10e6/uL (4.3-5.7); RED CELL DISTRIBUTION WIDTH 24.9 % (11.7-14.4)
[2022-04-25] MEDS ORDERED: SODIUM CHLORIDE 0.9% 250ML 250 ML ONE (20:38)
[2022-04-25] MEDS: ONDANSETRON HCL INJ 2MG/ML 2ML 2 MG/ML VIAL IV PRN (21:11)
[2022-04-26] VITALS: BP 134/52
[2022-04-26] MEDS: PROPRANOLOL HCL 10 MG TAB PO SCH ×4 (02:43→21:42)
[2022-04-26] MEDS: SODIUM CHLORIDE 1 GM TAB PO SCH ×4 (02:43→21:42)
[2022-04-26] MEDS: SODIUM BICARBONATE 8.4% 150 ML in STERILE WATER IV SOLN 1,000 ML IV SCH ×3 (02:54→22:03)
[2022-04-26 04:00] VITALS: BP 109/68
[2022-04-26] MEDS: OCTREOTIDE ACETATE 500 MCG in SODIUM CHLORIDE 0.9% 250ML 249 ML IV SCH ×3 (06:00→22:03)
[2022-04-26 07:40] LABS: BASOPHILS % 0.5 % (0.0-1.0); EOSINOPHILS # (AUTO) 0.1 (0.0-0.4); EOSINOPHILS % 1.7 % (0.0-6.0); HEMATOCRIT 26.6 % (38.2-49.6); HEMOGLOBIN 9.2 g/dL (14.0-18.0); LYMPHOCYTES # (AUTO) 1.2 (1.0-3.2); LYMPHOCYTES % 20.8 % (18.0-39.1); MEAN CORPUSCULAR HEMOGLOBIN 27.4 pg (28-32); MEAN CORPUSCULAR HGB CONC 34.6 g/dL (31-35); MEAN CORPUSCULAR VOLUME 79.2 fL (81-99); MONOCYTES # (AUTO) 0.7 (0.2-0.8); MONOCYTES % 11.1 % (4.4-11.3); NEUTROPHILS # (AUTO) 3.8 (2.1-6.9); NEUTROPHILS % 64.2 % (38.7-80.0); PLATELET COUNT 274 x10e3/uL (140-360); RED BLOOD COUNT 3.36 x10e6/uL (4.3-5.7); RED CELL DISTRIBUTION WIDTH 24.8 % (11.7-14.4)
[2022-04-26 08:02] LABS: ALBUMIN 1.8 g/dL (3.5-5.0); ALBUMIN/GLOBULIN RATIO 0.7 (0.8-2.0); ANION GAP 13.1 mmol/L (8-16); CALCIUM 8.2 mg/dL (8.4-10.2); CREATININE, SERUM 1.23 mg/dL (0.72-1.25); POTASSIUM 4.1 mmol/L (3.5-5.1)
[2022-04-26 08:13] VITALS: BP 111/79
[2022-04-26 08:35] VITALS: BP 111/79
[2022-04-26 09:12] LABS: PLATELET ESTIMATE ADEQUATE; PLATELET MORPHOLOGY COMMENT NORMAL
[2022-04-26 09:13] LABS: ANISOCYTOSIS SLIGHT; POIKILOCYTOSIS SLIGHT; RBC MORPHOLOGY COMMENT NORMAL; TARGET CELLS FEW
[2022-04-26] MEDS: MULTIVITAMINS/MINERALS TAB PO SCH (09:25)
[2022-04-26] MEDS: IRON SUCROSE 100 MG in SODIUM CHLORIDE 0.9% 100 ML IV SCH (09:31)
[2022-04-26 11:30] VITALS: BP 100/71
[2022-04-26] MEDS: CIPROFLOXACIN 400 MG/D5W 200ML 200 ML IV SCH (11:51)
[2022-04-26 17:05] VITALS: BP 121/75
[2022-04-27] VITALS (7 sets, daily range): BP systolic 107–129; BP diastolic 53–84
[2022-04-27] MEDS: CIPROFLOXACIN 400 MG/D5W 200ML 200 ML IV SCH ×3 (02:58→21:30)
[2022-04-27] MEDS: PROPRANOLOL HCL 10 MG TAB PO SCH ×3 (05:42→21:33)
[2022-04-27] MEDS: MULTIVITAMINS/MINERALS TAB PO SCH (07:58)
[2022-04-27] MEDS: SODIUM CHLORIDE 1 GM TAB PO SCH ×3 (07:58→21:30)
[2022-04-27] MEDS: IRON SUCROSE 100 MG in SODIUM CHLORIDE 0.9% 100 ML IV SCH (07:58)
[2022-04-27] MEDS: OCTREOTIDE ACETATE 500 MCG in SODIUM CHLORIDE 0.9% 250ML 249 ML IV SCH (11:40)
[2022-04-27] MEDS: SODIUM BICARBONATE 8.4% 150 ML in STERILE WATER IV SOLN 1,000 ML IV SCH ×2 (13:06→15:50)
[2022-04-27] MEDS ORDERED: SODIUM CHLORIDE 0.9% 250ML 250 ML ONE (21:39)
[2022-04-27] MEDS: TRAMADOL HCL 50 MG TAB PO PRN (22:41)
[2022-04-28] VITALS (8 sets, daily range): BP systolic 101–124; BP diastolic 67–82
[2022-04-28] MEDS: PROPRANOLOL HCL 10 MG TAB PO SCH ×3 (06:00→21:12)
[2022-04-28] MEDS: SODIUM BICARBONATE 8.4% 150 ML in STERILE WATER IV SOLN 1,000 ML IV SCH (06:37)
[2022-04-28 07:01] LABS: BASOPHILS % 0.4 % (0.0-1.0); EOSINOPHILS # (AUTO) 0.1 (0.0-0.4); EOSINOPHILS % 2.8 % (0.0-6.0); HEMATOCRIT 25.8 % (38.2-49.6); HEMOGLOBIN 8.8 g/dL (14.0-18.0); LYMPHOCYTES # (AUTO) 0.9 (1.0-3.2); LYMPHOCYTES % 18.6 % (18.0-39.1); MEAN CORPUSCULAR HEMOGLOBIN 27.7 pg (28-32); MEAN CORPUSCULAR HGB CONC 34.1 g/dL (31-35); MEAN CORPUSCULAR VOLUME 81.1 fL (81-99); MONOCYTES # (AUTO) 0.6 (0.2-0.8); MONOCYTES % 11.8 % (4.4-11.3); NEUTROPHILS # (AUTO) 3.2 (2.1-6.9); NEUTROPHILS % 63.6 % (38.7-80.0); PLATELET COUNT 246 x10e3/uL (140-360); RED BLOOD COUNT 3.18 x10e6/uL (4.3-5.7); RED CELL DISTRIBUTION WIDTH 25.4 % (11.7-14.4)
[2022-04-28 07:13] LABS: ALBUMIN 1.7 g/dL (3.5-5.0); ALBUMIN/GLOBULIN RATIO 0.7 (0.8-2.0); ANION GAP 11.5 mmol/L (8-16); CALCIUM 8.1 mg/dL (8.4-10.2); CREATININE, SERUM 1.21 mg/dL (0.72-1.25); POTASSIUM 3.5 mmol/L (3.5-5.1)
[2022-04-28] MEDS: CIPROFLOXACIN 400 MG/D5W 200ML 200 ML IV SCH ×2 (08:40→21:12)
[2022-04-28] MEDS: MULTIVITAMINS/MINERALS TAB PO SCH (08:41)
[2022-04-28] MEDS: SODIUM CHLORIDE 1 GM TAB PO SCH ×2 (08:41→14:37)
[2022-04-28] MEDS: TRAMADOL HCL 50 MG TAB PO PRN (08:49)
[2022-04-29] VITALS (8 sets, daily range): BP systolic 91–114; BP diastolic 64–81
[2022-04-29] MEDS: PROPRANOLOL HCL 10 MG TAB PO SCH ×3 (05:11→21:01)
[2022-04-29 07:14] LABS: ALBUMIN 1.7 g/dL (3.5-5.0); ALBUMIN/GLOBULIN RATIO 0.6 (0.8-2.0); ANION GAP 13.7 mmol/L (8-16); CALCIUM 7.8 mg/dL (8.4-10.2); CREATININE, SERUM 1.97 mg/dL (0.72-1.25); POTASSIUM 3.7 mmol/L (3.5-5.1)
[2022-04-29 07:16] LABS: BILIRUBIN,DIRECT 13.9 mg/dL (0.0-0.5)
[2022-04-29] MEDS: MULTIVITAMINS/MINERALS TAB PO SCH (08:04)
[2022-04-29] MEDS: CIPROFLOXACIN 400 MG/D5W 200ML 200 ML IV SCH ×2 (08:04→20:33)
[2022-04-29 13:16] LABS: CLARITY,URINE SL CLOUDY (CLEAR)
[2022-04-29 13:17] LABS: COLOR,URINE BROWN (YELLOW); KETONES,URINE TRACE (NEGATIVE); LEUKOCYTE ESTERASE ,URINE NEGATIVE (NEGATIVE); NITRITE,URINE NEGATIVE (NEGATIVE); PROTEIN,URINE DIPSTICK 2+ (NEGATIVE); URINE UROBILINOGEN 1 mg/dL (0.2 - 1)
[2022-04-29 13:25] LABS: BACTERIA,URINE MANY /HPF; EPITHELIAL CELLS,URINE FEW /LPF; RBC,URINE 0-5 /HPF (0-5)
[2022-04-30] VITALS (8 sets, daily range): BP systolic 85–107; BP diastolic 55–74
[2022-04-30] MEDS: PROPRANOLOL HCL 10 MG TAB PO SCH ×3 (04:39→22:00)
[2022-04-30 06:24] LABS: BASOPHILS # (AUTO) 0.1 (0.0-0.1); BASOPHILS % 0.8 % (0.0-1.0); EOSINOPHILS # (AUTO) 0.1 (0.0-0.4); EOSINOPHILS % 1.5 % (0.0-6.0); HEMOGLOBIN 8.5 g/dL (14.0-18.0); LYMPHOCYTES # (AUTO) 1.1 (1.0-3.2); LYMPHOCYTES % 18.1 % (18.0-39.1); MEAN CORPUSCULAR HEMOGLOBIN 28.1 pg (28-32); MEAN CORPUSCULAR VOLUME 82.8 fL (81-99); MONOCYTES # (AUTO) 0.8 (0.2-0.8); MONOCYTES % 13.4 % (4.4-11.3); NEUTROPHILS # (AUTO) 3.5 (2.1-6.9); NEUTROPHILS % 59.8 % (38.7-80.0); PLATELET COUNT 274 x10e3/uL (140-360); RED BLOOD COUNT 3.02 x10e6/uL (4.3-5.7); RED CELL DISTRIBUTION WIDTH 27.3 % (11.7-14.4)
[2022-04-30] MEDS: MULTIVITAMINS/MINERALS TAB PO SCH (07:50)
[2022-04-30 08:06] LABS: ANISOCYTOSIS MODERATE; LYMPHOCYTES % (MANUAL) 16 % (19-48); MONOCYTES % (MANUAL) 8 % (3.4-9.0); MYELOCYTES % (MANUAL) 4 % (0-0); NEUTROPHILS % (MANUAL) 72 % (40-74); PLATELET ESTIMATE ADEQUATE; PLATELET MORPHOLOGY COMMENT NORMAL; RBC MORPHOLOGY COMMENT ABNORMAL
[2022-04-30 08:07] LABS: ACANTHOCYTES FEW; BURR CELLS SLIGHT; POIKILOCYTOSIS SLIGHT; TARGET CELLS FEW
[2022-04-30] MEDS: CIPROFLOXACIN 400 MG/D5W 200ML 200 ML IV SCH (09:17)
[2022-04-30 09:58] LABS: INR 1.3; PROTHROMBIN TIME 16.7 seconds (11.9-14.5)
[2022-04-30] MEDS ORDERED: ALBUMIN 25% 12.5GM 50ML 100 ML IV ONE (10:56)
[2022-04-30 11:11] LABS: ALBUMIN 1.5 g/dL (3.5-5.0); ALBUMIN/GLOBULIN RATIO 0.5 (0.8-2.0); ANION GAP 14.4 mmol/L (8-16); CALCIUM 7.5 mg/dL (8.4-10.2); CREATININE, SERUM 3.09 mg/dL (0.72-1.25); POTASSIUM 4.4 mmol/L (3.5-5.1)
[2022-04-30] MEDS ORDERED: ALBUMIN 25% 12.5GM 50ML 50 ML IV ONE ×2 (11:45→11:48)
[2022-04-30] MEDS: ACETAMINOPHEN 325 MG TAB PO PRN (20:44)
[2022-05-01] VITALS (7 sets, daily range): BP systolic 87–127; BP diastolic 56–74
[2022-05-01] MEDS: PROPRANOLOL HCL 10 MG TAB PO SCH ×3 (06:00→21:48)
[2022-05-01 07:04] LABS: ALBUMIN 1.9 g/dL (3.5-5.0); ALBUMIN/GLOBULIN RATIO 0.9 (0.8-2.0); ANION GAP 14.9 mmol/L (8-16); CALCIUM 7.9 mg/dL (8.4-10.2); CREATININE, SERUM 3.92 mg/dL (0.72-1.25); POTASSIUM 3.9 mmol/L (3.5-5.1)
[2022-05-01] MEDS: MULTIVITAMINS/MINERALS TAB PO SCH (08:16)
[2022-05-01] MEDS ORDERED: CIPROFLOXACIN 200 MG/D5W 100ML 100 ML IV SCH (09:00)
[2022-05-01] MEDS: CIPROFLOXACIN 200 MG/D5W 100ML 100 ML IV SCH (09:45)
[2022-05-01 10:14] LABS: BODY FLUID APPEARANCE CLEAR; BODY FLUID COLOR YELLOW; BODY FLUID TYPE PERITONEAL
[2022-05-01 10:16] LABS: WBC,BODY FLUID 17 cells/uL
[2022-05-01 10:17] LABS: RBC,BODY FLUID < 2000 cells/uL
[2022-05-01 10:48] LABS: LYMPHOCYTES,BODY FLUID 32 %
[2022-05-01 10:54] LABS: MONO/MACROPHG,BODY FLUID 21 %
[2022-05-01 11:08] LABS: OTHER CELLS,BODY FLUID 47 %
[2022-05-01] MEDS: ALBUMIN 25% 25GM 100ML 100 ML IV SCH ×3 (14:00→23:15)
[2022-05-01] MEDS ORDERED: ALBUMIN 25% 25GM 100ML 0.25 GM/ML BTL IV SCH ×2 (14:00→22:00)
[2022-05-01 18:52] LABS: CLARITY,URINE SL CLOUDY (CLEAR); COLOR,URINE ORANGE (YELLOW); KETONES,URINE NEGATIVE (NEGATIVE); LEUKOCYTE ESTERASE ,URINE SMALL (NEGATIVE); NITRITE,URINE NEGATIVE (NEGATIVE); PROTEIN,URINE DIPSTICK 1+ (NEGATIVE); URINE UROBILINOGEN 0.2 mg/dL (0.2 - 1)
[2022-05-01 19:03] LABS: BACTERIA,URINE MODERATE /HPF; EPITHELIAL CELLS,URINE FEW /LPF; RBC,URINE 0-5 /HPF (0-5)
[2022-05-01 19:08] LABS: CREATININE,URINE RANDOM 110.52 mg/dL (63-166)
[2022-05-01 19:16] LABS: SODIUM,URINE < 20 mmol/L
[2022-05-01] MEDS ORDERED: OCTREOTIDE ACETATE 0.1 MG/ML 100MCG AMP IV SCH (20:00)
[2022-05-01] MEDS: FUROSEMIDE INJ 10 MG/ML 4 ML VIAL IV SCH (21:30)
[2022-05-01] MEDS: MUPIROCIN 2% OINT 22 GM TUBE TOP SCH (21:44)
[2022-05-02] VITALS (10 sets, daily range): BP systolic 94–138; BP diastolic 60–92
[2022-05-02] MEDS: PROPRANOLOL HCL 10 MG TAB PO SCH ×3 (06:00→20:42)
[2022-05-02] MEDS: ALBUMIN 25% 25GM 100ML 100 ML IV SCH ×3 (06:26→21:13)
[2022-05-02] MEDS: CIPROFLOXACIN 200 MG/D5W 100ML 100 ML IV SCH (09:42)
[2022-05-02] MEDS: FUROSEMIDE INJ 10 MG/ML 4 ML VIAL IV SCH (09:42)
[2022-05-02] MEDS: MIDODRINE HCL 5 MG TABLET PO SCH ×3 (09:42→17:00)
[2022-05-02] MEDS: MULTIVITAMINS/MINERALS TAB PO SCH (09:43)
[2022-05-02 12:22] LABS: ANION GAP 15.5 mmol/L (8-16); CALCIUM 8.5 mg/dL (8.4-10.2); CREATININE, SERUM 4.33 mg/dL (0.72-1.25); POTASSIUM 3.5 mmol/L (3.5-5.1)
[2022-05-02 12:23] LABS: ALBUMIN/GLOBULIN RATIO 1.8 (0.8-2.0)
[2022-05-02] MEDS ORDERED: SPIRONOLACTONE 25 MG TAB PO SCH (13:45)
[2022-05-02] MEDS ORDERED: ALBUMIN 25% 12.5GM 0.25 GM/ML BTL IV SCH (14:00)
[2022-05-02] MEDS: MUPIROCIN 2% OINT 22 GM TUBE TOP SCH (20:33)
[2022-05-03] VITALS (8 sets, daily range): BP systolic 108–118; BP diastolic 56–89
[2022-05-03] MEDS: ACETAMINOPHEN 325 MG TAB PO PRN ×2 (03:43→22:34)
[2022-05-03] MEDS: ALBUMIN 25% 25GM 100ML 100 ML IV SCH ×2 (05:08→14:34)
[2022-05-03] MEDS: PROPRANOLOL HCL 10 MG TAB PO SCH ×3 (05:32→21:22)
[2022-05-03 05:35] LABS: BASOPHILS % 0.6 % (0.0-1.0); EOSINOPHILS # (AUTO) 0.1 (0.0-0.4); EOSINOPHILS % 1.5 % (0.0-6.0); HEMATOCRIT 22.8 % (38.2-49.6); HEMOGLOBIN 7.9 g/dL (14.0-18.0); LYMPHOCYTES # (AUTO) 0.9 (1.0-3.2); LYMPHOCYTES % 17.7 % (18.0-39.1); MEAN CORPUSCULAR HEMOGLOBIN 28.5 pg (28-32); MEAN CORPUSCULAR HGB CONC 34.6 g/dL (31-35); MEAN CORPUSCULAR VOLUME 82.3 fL (81-99); MONOCYTES # (AUTO) 0.5 (0.2-0.8); NEUTROPHILS # (AUTO) 3.2 (2.1-6.9); NEUTROPHILS % 66.5 % (38.7-80.0); PLATELET COUNT 185 x10e3/uL (140-360); RED BLOOD COUNT 2.77 x10e6/uL (4.3-5.7); RED CELL DISTRIBUTION WIDTH 27.4 % (11.7-14.4)
[2022-05-03 06:03] LABS: ALBUMIN 3.2 g/dL (3.5-5.0); ALBUMIN/GLOBULIN RATIO 2.1 (0.8-2.0); ANION GAP 16.4 mmol/L (8-16); CALCIUM 8.6 mg/dL (8.4-10.2); CREATININE, SERUM 4.54 mg/dL (0.72-1.25); POTASSIUM 3.4 mmol/L (3.5-5.1)
[2022-05-03] MEDS: CIPROFLOXACIN 200 MG/D5W 100ML 100 ML IV SCH (09:00)
[2022-05-03] MEDS: MIDODRINE HCL 5 MG TABLET PO SCH ×3 (10:13→17:16)
[2022-05-03] MEDS: MULTIVITAMINS/MINERALS TAB PO SCH (10:13)
[2022-05-03] MEDS ORDERED: POTASSIUM CHLORIDE 20 MEQ TAB CR PO ONE (16:30)
[2022-05-03] MEDS: MUPIROCIN 2% OINT 22 GM TUBE TOP SCH (21:23)
[2022-05-04] VITALS (7 sets, daily range): BP systolic 100–119; BP diastolic 59–71
[2022-05-04] MEDS: PROPRANOLOL HCL 10 MG TAB PO SCH ×3 (05:10→22:35)
[2022-05-04 06:28] LABS: ANION GAP 17.3 mmol/L (8-16); CALCIUM 8.7 mg/dL (8.4-10.2); CREATININE, SERUM 4.64 mg/dL (0.72-1.25); MAGNESIUM 1.8 MG/DL (1.3-2.1); PHOSPHORUS 3.9 MG/DL (2.3-4.7); POTASSIUM 3.3 mmol/L (3.5-5.1)
[2022-05-04] MEDS: ALBUMIN 25% 25GM 100ML 100 ML IV SCH ×3 (06:36→14:39)
[2022-05-04] MEDS: MULTIVITAMINS/MINERALS TAB PO SCH (09:07)
[2022-05-04] MEDS: MIDODRINE HCL 5 MG TABLET PO SCH ×3 (09:07→17:27)
[2022-05-04] MEDS: CIPROFLOXACIN 200 MG/D5W 100ML 100 ML IV SCH (09:08)
[2022-05-04 14:09] LABS: ALBUMIN 3.2 g/dL (3.5-5.0)
[2022-05-04 14:15] LABS: BILIRUBIN,DIRECT 11.8 mg/dL (0.0-0.5)
[2022-05-04] MEDS ORDERED: POTASSIUM CHLORIDE 20MEQ/100ML 100 ML IV ONE (18:00)
[2022-05-04] MEDS ORDERED: MAGNESIUM SULFATE 2GM/50ML 50 ML IV ONE (18:00)
[2022-05-04] MEDS: MUPIROCIN 2% OINT 22 GM TUBE TOP SCH (21:02)
[2022-05-05] VITALS (9 sets, daily range): BP systolic 104–123; BP diastolic 54–71
[2022-05-05] MEDS: PROPRANOLOL HCL 10 MG TAB PO SCH ×3 (05:49→22:12)
[2022-05-05 07:23] LABS: ANION GAP 15.4 mmol/L (8-16); CALCIUM 8.8 mg/dL (8.4-10.2); CREATININE, SERUM 4.31 mg/dL (0.72-1.25); POTASSIUM 3.4 mmol/L (3.5-5.1)
[2022-05-05] MEDS: MIDODRINE HCL 5 MG TABLET PO SCH ×3 (09:29→16:20)
[2022-05-05] MEDS: MULTIVITAMINS/MINERALS TAB PO SCH (09:29)
[2022-05-05] MEDS: ACETAMINOPHEN 325 MG TAB PO PRN (09:30)
[2022-05-05] MEDS: CIPROFLOXACIN 200 MG/D5W 100ML 100 ML IV SCH (10:12)
[2022-05-05] MEDS ORDERED: POTASSIUM CHLORIDE 20 MEQ TAB CR PO ONE (13:45)
[2022-05-05] MEDS: MUPIROCIN 2% OINT 22 GM TUBE TOP SCH (20:32)
[2022-05-05] MEDS ORDERED: SODIUM CHLORIDE 0.9% 250ML 250 ML ONE (20:50)
[2022-05-05 23:39] LABS: ALBUMIN 3.3 g/dL (3.5-5.0)
[2022-05-05 23:41] LABS: BILIRUBIN,DIRECT 11.7 mg/dL (0.0-0.5)
[2022-05-06] VITALS (9 sets, daily range): BP systolic 99–119; BP diastolic 50–78
[2022-05-06] MEDS: PROPRANOLOL HCL 10 MG TAB PO SCH ×3 (06:00→20:53)
[2022-05-06 06:14] LABS: BASOPHILS # (AUTO) 0.1 (0.0-0.1); EOSINOPHILS # (AUTO) 0.1 (0.0-0.4); EOSINOPHILS % 1.9 % (0.0-6.0); HEMATOCRIT 23.8 % (38.2-49.6); HEMOGLOBIN 8.2 g/dL (14.0-18.0); LYMPHOCYTES # (AUTO) 1.2 (1.0-3.2); LYMPHOCYTES % 18.6 % (18.0-39.1); MEAN CORPUSCULAR HEMOGLOBIN 28.5 pg (28-32); MEAN CORPUSCULAR HGB CONC 34.5 g/dL (31-35); MEAN CORPUSCULAR VOLUME 82.6 fL (81-99); MONOCYTES # (AUTO) 0.7 (0.2-0.8); MONOCYTES % 11.1 % (4.4-11.3); NEUTROPHILS # (AUTO) 4.1 (2.1-6.9); NEUTROPHILS % 65.3 % (38.7-80.0); PLATELET COUNT 206 x10e3/uL (140-360); RED BLOOD COUNT 2.88 x10e6/uL (4.3-5.7); RED CELL DISTRIBUTION WIDTH 27.8 % (11.7-14.4)
[2022-05-06 06:34] LABS: ALBUMIN/GLOBULIN RATIO 1.9 (0.8-2.0); ANION GAP 14.7 mmol/L (8-16); CALCIUM 8.6 mg/dL (8.4-10.2); CREATININE, SERUM 4.03 mg/dL (0.72-1.25); POTASSIUM 3.7 mmol/L (3.5-5.1)
[2022-05-06] MEDS: MIDODRINE HCL 5 MG TABLET PO SCH ×3 (08:29→15:42)
[2022-05-06] MEDS: MULTIVITAMINS/MINERALS TAB PO SCH (08:29)
[2022-05-06] MEDS: CIPROFLOXACIN 200 MG/D5W 100ML 100 ML IV SCH (10:25)
[2022-05-06] MEDS: MUPIROCIN 2% OINT 22 GM TUBE TOP SCH (20:14)
[2022-05-07] MEDS: ACETAMINOPHEN 325 MG TAB PO PRN ×2 (01:34→06:31)
[2022-05-07 04:23] VITALS: BP 106/73
[2022-05-07] MEDS: PROPRANOLOL HCL 10 MG TAB PO SCH ×3 (05:45→23:03)
[2022-05-07 06:29] LABS: BASOPHILS % 0.5 % (0.0-1.0); EOSINOPHILS # (AUTO) 0.1 (0.0-0.4); EOSINOPHILS % 1.9 % (0.0-6.0); HEMATOCRIT 23.3 % (38.2-49.6); HEMOGLOBIN 7.9 g/dL (14.0-18.0); LYMPHOCYTES # (AUTO) 1.3 (1.0-3.2); LYMPHOCYTES % 20.3 % (18.0-39.1); MEAN CORPUSCULAR HEMOGLOBIN 28.3 pg (28-32); MEAN CORPUSCULAR HGB CONC 33.9 g/dL (31-35); MEAN CORPUSCULAR VOLUME 83.5 fL (81-99); MONOCYTES # (AUTO) 0.7 (0.2-0.8); MONOCYTES % 11.1 % (4.4-11.3); NEUTROPHILS % 64.3 % (38.7-80.0); PLATELET COUNT 197 x10e3/uL (140-360); RED BLOOD COUNT 2.79 x10e6/uL (4.3-5.7); RED CELL DISTRIBUTION WIDTH 27.7 % (11.7-14.4)
[2022-05-07 07:22] LABS: ALBUMIN 2.9 g/dL (3.5-5.0); ALBUMIN/GLOBULIN RATIO 1.6 (0.8-2.0); ANION GAP 14.6 mmol/L (8-16); CALCIUM 8.8 mg/dL (8.4-10.2); CREATININE, SERUM 3.86 mg/dL (0.72-1.25); POTASSIUM 3.6 mmol/L (3.5-5.1)
[2022-05-07 07:56] VITALS: BP 104/47
[2022-05-07 08:05] VITALS: BP 104/47
[2022-05-07] MEDS: MIDODRINE HCL 5 MG TABLET PO SCH ×3 (08:59→16:51)
[2022-05-07] MEDS: MULTIVITAMINS/MINERALS TAB PO SCH (08:59)
[2022-05-07] MEDS: CIPROFLOXACIN 200 MG/D5W 100ML 100 ML IV SCH (09:01)
[2022-05-07 11:59] VITALS: BP 111/71
[2022-05-07] MEDS ORDERED: ALBUMIN 25% 12.5GM 50ML 150 ML IV ONE (14:48)
[2022-05-07 16:05] VITALS: BP 98/53
[2022-05-07 17:14] LABS: INR 1.49; PROTHROMBIN TIME 18.5 seconds (11.9-14.5)
[2022-05-07 22:25] VITALS: BP 98/60
[2022-05-07 23:40] LABS: BODY FLUID APPEARANCE SL.CLOUDY; BODY FLUID COLOR YELLOW; BODY FLUID TYPE PERITONEAL; RBC,BODY FLUID 0 cells/uL; WBC,BODY FLUID 39 cells/uL
[2022-05-07 23:57] LABS: LYMPHOCYTES,BODY FLUID 54 %; MONO/MACROPHG,BODY FLUID 5 %; NEUTROPHILS,BODY FLUID 7 %; OTHER CELLS,BODY FLUID 34 %
[2022-05-08] VITALS (9 sets, daily range): BP systolic 95–112; BP diastolic 56–67
[2022-05-08] MEDS: MUPIROCIN 2% OINT 22 GM TUBE TOP SCH (05:08)
[2022-05-08] MEDS: PROPRANOLOL HCL 10 MG TAB PO SCH ×3 (05:35→21:10)
[2022-05-08] MEDS: ACETAMINOPHEN 325 MG TAB PO PRN ×2 (05:48→06:48)
[2022-05-08 06:43] LABS: BASOPHILS % 0.4 % (0.0-1.0); EOSINOPHILS # (AUTO) 0.1 (0.0-0.4); EOSINOPHILS % 1.9 % (0.0-6.0); HEMATOCRIT 22.6 % (38.2-49.6); HEMOGLOBIN 7.7 g/dL (14.0-18.0); LYMPHOCYTES % 19.7 % (18.0-39.1); MEAN CORPUSCULAR HEMOGLOBIN 28.4 pg (28-32); MEAN CORPUSCULAR HGB CONC 34.1 g/dL (31-35); MEAN CORPUSCULAR VOLUME 83.4 fL (81-99); MONOCYTES # (AUTO) 0.6 (0.2-0.8); MONOCYTES % 10.9 % (4.4-11.3); NEUTROPHILS # (AUTO) 3.4 (2.1-6.9); NEUTROPHILS % 65.2 % (38.7-80.0); PLATELET COUNT 206 x10e3/uL (140-360); RED BLOOD COUNT 2.71 x10e6/uL (4.3-5.7); RED CELL DISTRIBUTION WIDTH 27.7 % (11.7-14.4)
[2022-05-08 07:15] LABS: ALBUMIN 2.9 g/dL (3.5-5.0); ALBUMIN/GLOBULIN RATIO 1.7 (0.8-2.0); ANION GAP 15.4 mmol/L (8-16); CALCIUM 8.6 mg/dL (8.4-10.2); CREATININE, SERUM 3.31 mg/dL (0.72-1.25); POTASSIUM 3.4 mmol/L (3.5-5.1)
[2022-05-08] MEDS: MIDODRINE 2.5 MG TAB PO SCH ×3 (08:24→17:18)
[2022-05-08] MEDS: MULTIVITAMINS/MINERALS TAB PO SCH (08:25)
[2022-05-08] MEDS: CIPROFLOXACIN 200 MG/D5W 100ML 100 ML IV SCH (08:25)
[2022-05-09] VITALS (7 sets, daily range): BP systolic 103–155; BP diastolic 54–80
[2022-05-09] MEDS: PROPRANOLOL HCL 10 MG TAB PO SCH ×3 (05:48→21:43)
[2022-05-09] MEDS: MIDODRINE 2.5 MG TAB PO SCH ×3 (08:25→17:11)
[2022-05-09] MEDS: MULTIVITAMINS/MINERALS TAB PO SCH (08:25)
[2022-05-09] MEDS ORDERED: SODIUM CHLORIDE 0.9% 250ML 250 ML ONE (08:49)
[2022-05-09] MEDS: CIPROFLOXACIN 200 MG/D5W 100ML 100 ML IV SCH (10:24)
[2022-05-09 14:09] LABS: CLARITY,URINE CLEAR (CLEAR); COLOR,URINE YELLOW (YELLOW); LEUKOCYTE ESTERASE ,URINE TRACE (NEGATIVE); NITRITE,URINE NEGATIVE (NEGATIVE); PROTEIN,URINE DIPSTICK 1+ (NEGATIVE)
[2022-05-09 14:10] LABS: KETONES,URINE NEGATIVE (NEGATIVE); URINE UROBILINOGEN 0.2 mg/dL (0.2 - 1)
[2022-05-09 14:21] LABS: BACTERIA,URINE FEW /HPF; RENAL EPITHELIAL CELLS,URINE FEW; WBC,URINE (MAN) 0-5 /HPF (0-5)
[2022-05-09 14:22] LABS: YEAST,URINE MODERATE
[2022-05-09] MEDS ORDERED: POTASSIUM CHLORIDE 20MEQ/100ML 200 ML IV ONE (18:00)
[2022-05-10] VITALS (8 sets, daily range): BP systolic 99–128; BP diastolic 56–66
[2022-05-10] MEDS: PROPRANOLOL HCL 10 MG TAB PO SCH ×4 (05:17→20:56)
[2022-05-10 06:29] LABS: BASOPHILS # (AUTO) 0.1 (0.0-0.1); BASOPHILS % 1.1 % (0.0-1.0); EOSINOPHILS # (AUTO) 0.1 (0.0-0.4); EOSINOPHILS % 2.2 % (0.0-6.0); HEMATOCRIT 21.6 % (38.2-49.6); HEMOGLOBIN 7.6 g/dL (14.0-18.0); LYMPHOCYTES # (AUTO) 1.1 (1.0-3.2); MEAN CORPUSCULAR HEMOGLOBIN 30.4 pg (28-32); MEAN CORPUSCULAR HGB CONC 35.2 g/dL (31-35); MEAN CORPUSCULAR VOLUME 86.4 fL (81-99); MONOCYTES # (AUTO) 0.6 (0.2-0.8); MONOCYTES % 10.8 % (4.4-11.3); NEUTROPHILS # (AUTO) 3.7 (2.1-6.9); NEUTROPHILS % 65.5 % (38.7-80.0); PLATELET COUNT 217 x10e3/uL (140-360); RED CELL DISTRIBUTION WIDTH 28.6 % (11.7-14.4)
[2022-05-10 06:37] LABS: ALANINE AMINOTRANSFERASE 28 IU/L (0-55); ALBUMIN 2.5 g/dL (3.5-5.0); ALBUMIN/GLOBULIN RATIO 1.3 (0.8-2.0); ALKALINE PHOSPHATASE 228 IU/L (40-150); ANION GAP 14.6 mmol/L (8-16); BLOOD UREA NITROGEN 44 mg/dL (7-26); BUN/CREATININE RATIO 15 (6-25); CALCIUM 8.6 mg/dL (8.4-10.2); CARBON DIOXIDE 18 mmol/L (22-29); CHLORIDE 109 mmol/L (98-107); CREATININE, SERUM 2.91 mg/dL (0.72-1.25); GLUCOSE 119 mg/dL (74-118); POTASSIUM 3.6 mmol/L (3.5-5.1); SODIUM 138 mmol/L (136-145)
[2022-05-10] MEDS: ACETAMINOPHEN 325 MG TAB PO PRN (06:37)
[2022-05-10 08:16] LABS: PLATELET ESTIMATE ADEQUATE; PLATELET MORPHOLOGY COMMENT NORMAL; RBC MORPHOLOGY COMMENT ABNORMAL
[2022-05-10 08:17] LABS: ELLIPTOCYTE, RBC SLIGHT; POIKILOCYTOSIS MODERATE
[2022-05-10 08:18] LABS: ACANTHOCYTES FEW; ANISOCYTOSIS SLIGHT
[2022-05-10] MEDS: MULTIVITAMINS/MINERALS TAB PO SCH (09:45)
[2022-05-10] MEDS: MIDODRINE 2.5 MG TAB PO SCH ×3 (09:47→17:22)
[2022-05-10] MEDS: CIPROFLOXACIN 200 MG/D5W 100ML 100 ML IV SCH (11:01)
[2022-05-11] VITALS: BP 109/61
[2022-05-11 04:00] VITALS: BP 112/58
[2022-05-11] MEDS: PROPRANOLOL HCL 10 MG TAB PO SCH ×3 (06:00→21:24)
[2022-05-11] MEDS: MIDODRINE 2.5 MG TAB PO SCH ×3 (08:00→16:00)
[2022-05-11 08:06] VITALS: BP 127/56
[2022-05-11 08:37] VITALS: BP 127/56
[2022-05-11] MEDS: MULTIVITAMINS/MINERALS TAB PO SCH (09:23)
[2022-05-11] MEDS: DRONABINOL 2.5MG PO SCH ×2 (09:23→16:45)
[2022-05-11 11:28] VITALS: BP 104/56
[2022-05-11 15:18] VITALS: BP 107/55
[2022-05-12 00:37] VITALS: BP 116/72
[2022-05-12 00:48] VITALS: BP 100/70
[2022-05-12] MEDS: ACETAMINOPHEN 325 MG TAB PO PRN (02:28)
[2022-05-12 04:00] VITALS: BP 110/68
[2022-05-12] MEDS: PROPRANOLOL HCL 10 MG TAB PO SCH (05:37)
[2022-05-12 07:55] VITALS: BP 107/55
[2022-05-12 08:04] VITALS: BP 107/55
[2022-05-12] MEDS: MIDODRINE 2.5 MG TAB PO SCH ×2 (09:53→13:02)
[2022-05-12] MEDS: DRONABINOL 2.5MG PO SCH (09:53)
[2022-05-12] MEDS: MULTIVITAMINS/MINERALS TAB PO SCH (09:53)
[2022-05-12 11:40] VITALS: BP 122/76
== END 2022-05-12 14:21 | disposition hospice, home (50) | DRG 432 ==
LOC: ER 10:43 → ERHOLD 12:52 → MED/SURG3 14:00
PROVIDERS: ADMIT Internal Medicine; ATTEND Internal Medicine
PROC: 0W9G3ZZ Drainage of Peritoneal Cavity, Percutaneous Approach (ICD-10-PCS; 2022-04-23)
PROC: 02HV33Z Insertion of Infusion Device into Superior Vena Cava, Percutaneous Approach (ICD-10-PCS; 2022-04-23)
PROC: 30243N1 Transfusion of Nonautologous Red Blood Cells into Central Vein, Percutaneous Approach (ICD-10-PCS; 2022-04-23)
PROC: 0W9G3ZZ Drainage of Peritoneal Cavity, Percutaneous Approach (ICD-10-PCS; principal; 2022-04-30)
PROC: 0W9G3ZZ Drainage of Peritoneal Cavity, Percutaneous Approach (ICD-10-PCS; 2022-05-07)
DX: K70.31 Alcoholic cirrhosis of liver with ascites (principal); G93.41 Metabolic encephalopathy; I85.11 Secondary esophageal varices with bleeding; K76.6 Portal hypertension; N39.0 Urinary tract infection, site not specified; E87.1 Hypo-osmolality and hyponatremia; Z16.24 Resistance to multiple antibiotics; D62 Acute posthemorrhagic anemia; E87.20 Acidosis, unspecified; N17.9 Acute kidney failure, unspecified; Z16.12 Extended spectrum beta lactamase (ESBL) resistance; Z66 Do not resuscitate; N18.30 Chronic kidney disease, stage 3 unspecified; F10.20 Alcohol dependence, uncomplicated; Z86.73 Personal history of transient ischemic attack (TIA), and cerebral infarction without residual deficits; K21.9 Gastro-esophageal reflux disease without esophagitis; I12.9 Hypertensive chronic kidney disease with stage 1 through stage 4 chronic kidney disease, or unspecified chronic kidney disease; R60.0 Localized edema; S00.93XA Contusion of unspecified part of head, initial encounter; W19.XXXA Unspecified fall, initial encounter; Y92.009 Unspecified place in unspecified non-institutional (private) residence as the place of occurrence of the external cause; B96.20 Unspecified Escherichia coli [E. coli] as the cause of diseases classified elsewhere; B95.5 Unspecified streptococcus as the cause of diseases classified elsewhere; B96.89 Other specified bacterial agents as the cause of diseases classified elsewhere; B18.2 Chronic viral hepatitis C; K64.8 Other hemorrhoids; Z20.822 Contact with and (suspected) exposure to COVID-19; Z59.6 Low income; E78.5 Hyperlipidemia, unspecified; I48.0 Paroxysmal atrial fibrillation; Z79.01 Long term (current) use of anticoagulants
CPT/HCPCS: 36415; 36569; 49083; 70450; 71045; 72125; 74018; 74176; 74470; 76705; 76770; 80048; 80053; 80076; 80320; 81001; 82040; 82105; 82140; 82248; 82550; 82553; 82570; 82607; 82746; 82948; 83540; 83615; 83735; 83880; 84080; 84100; 84155; 84156; 84157; 84300; 84466; 84484; 84550; 85025; 85045; 85610; 85730; 86039; 86255; 86850; 86900; 86920; 87040; 87070; 87086; 87186; 87205; 87522; 88112; 88300; 88305; 89051; 93005; 94760; 94799; 97139; 99252; 99284; C1729; J0696; J1756; J1940; J2353; J2354; J2405; J2543; J3411; J3475; J3480; J7030; J7040; J7050; P9016; P9047